=== PATIENT | female | born 1945 | race Two or more races ===

== ENCOUNTER 2024-08-20 13:02 | Outpatient (OUT) | payer MEDICARE, OTHER, SELFPAY ==
[2024-08-20 13:15] LABS: Hemoglobin 13.7 g/dL (12.0-16.0)
--- NOTE | 2024-08-20 14:10 | RT_ITS ---
[facility] Test Date: 2024-08-20 Pat Name: MILAGROS LARA Department: Room: - Gender: Female Tour Guide: Juliane Goldstein, FANCY SEWER : 1945 Requested By: Chaya Gates Order Number: [id number] Reading MD: Bk Denis Interpretive Statements Pulmonary function testing was completed according to ATS criteria. Findings were considered accurate and reproducible. No bronchodilator was administered due to normal spirometric values. Spirometry (based on pre-bronchodilator values): -FEV1/FVC: Low normal @ 70% -FEV1: Normal @ 103% -FVC: Normal @ 110% Lung volumes by plethysmography: -RV: Increased @ 150% -TLC: Increased @ 128% Diffusion capacity: -DLCO: Normal @ 84% when corrected for Hb 13.7g/dL Impressions: -Spirometry trends towards mild obstruction. An elevated RV and TLC suggest air trapping and hyperinflation respectively. The diffusion capacity is normal. Overall study suggests underlying obstructive lung disease such as asthma or COPD. Clinical correlation required. Electronically Signed On 08-20-2024 18:09:24 EDT by Bk Denis
== END 2024-08-20 13:03 | disposition home or self-care (01) ==
PROVIDERS: PCP Internal Medicine; Visit Provider Internal Medicine Cardiovascular Disease
DX: R06.02 Shortness of breath (principal)
CPT/HCPCS: 36415; 85018; 94010; 94726; 94729